=== PATIENT | male | born 1975 | race American Indian/Alaskan Native ===

== ENCOUNTER 2017-04-26 09:37 | Emergency (ER) | payer SELFPAY ==
[2017-04-26] MEDS ORDERED: XYLOCAINE 1% 20 mL INFILTRATI ONE (17:28)
[2017-04-26] MEDS ORDERED: BACTRIM DS PO ONE (18:30)
--- NOTE | 2017-04-26 18:36 | Emergency Department Report ---
ED General Adult HPI - General Chief complaint: Skin/Abscess/Foreign Body Stated complaint: ABCESS R SIDE OF NECK Time Seen by Provider: 04/26/17 17:28 Source: patient Mode of arrival: Ambulatory Limitations: No Limitations - History of Present Illness Initial comments: Pt is a 42 M no significant pmhx who presents with a right sided chin abscess. Pt states that it occurred 3 days ago. He states that it been open and draining. Pt states that pain is a 1/10 shaving makes the pain worse and nothing makes the pain better. Pt states that he has had no fevers no chills no nausea or vomiting. 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 He has no other complaints. - Related Data Previous Rx's Medication Instructions Recorded Last Taken Type Sulfamethoxazole/Trimethoprim 1 each PO BID #10 tablet 04/26/17 Unknown Rx [Bactrim DS TAB] Allergies Allergy/AdvReac Type Severity Reaction Status Date / Time No Known Allergies Allergy Unverified 04/26/17 12:37 ED Review of Systems ROS: Stated complaint: ABCESS R SIDE OF NECK Other details as noted in HPI Constitutional: denies: chills, fever Eyes: denies: eye pain, eye discharge, vision change ENT: denies: ear pain, throat pain Respiratory: denies: cough, shortness of breath, wheezing Cardiovascular: denies: chest pain, palpitations Endocrine: no symptoms reported Gastrointestinal: denies: abdominal pain, nausea, diarrhea Genitourinary: denies: urgency, dysuria Musculoskeletal: denies: back pain, joint swelling, arthralgia Skin: other (abscess). denies: rash, lesions Neurological: denies: headache, weakness, paresthesias Psychiatric: denies: anxiety, depression Hematological/Lymphatic: denies: easy bleeding, easy bruising ED Past Medical Hx - Past Medical History Previous Medical History?: No - Surgical History Past Surgical History?: No - Social History Smoking Status: Never Smoker Substance Use Type: Marijuana - Medications Home Medications: Home Medications Medication Instructions Recorded Confirmed Last Taken Type Sulfamethoxazole/Trimethoprim 1 each PO BID #10 tablet 04/26/17 Unknown Rx [Bactrim DS TAB] ED Physical Exam - General Limitations: No Limitations General appearance: alert, in no apparent distress - Head Head exam: Present: atraumatic, normocephalic - Eye Eye exam: Present: normal appearance - ENT ENT exam: Present: mucous membranes moist - Neck Neck exam: Present: other (2cm x 1 cm abscess on neck ) - Respiratory Respiratory exam: Present: normal lung sounds bilaterally. Absent: respiratory distress - Cardiovascular Cardiovascular Exam: Present: regular rate, normal rhythm. Absent: systolic murmur, diastolic murmur, rubs, gallop - GI/Abdominal GI/Abdominal exam: Present: soft, normal bowel sounds - Rectal Rectal exam: Present: deferred - Extremities Exam Extremities exam: Present: normal inspection - Back Exam Back exam: Present: normal inspection - Neurological Exam Neurological exam: Present: alert, oriented X3 - Psychiatric Psychiatric exam: Present: normal affect, normal mood - Skin Skin exam: Present: warm, dry, intact, normal color. Absent: rash ED Course Vital Signs 04/26/17 12:33 Temperature 98.1 F Pulse Rate 63 Respiratory 16 Rate Blood Pressure 120/80 O2 Sat by Pulse 99 Oximetry - I & D Right Neck Type of Procedure: Simple Site: used 4 cc's of lidocaine to numb the area. Blade Size: 16 I & D Procedure: sterile drapes applied Progress: small amount of pus was expressed ED Medical Decision Making - Medical Decision Making Cdx: Abscess ddx: Foliculitis, cellulitis I will give patient oral antibiotics and I will do an incision and drain. Pt tolerated procedure well and I will send pt home with work note. Discussed plan with patient and patient agrees with plan additional verbal discharge instructions were given. Critical care attestation.: If time is entered above; I have spent that time in minutes in the direct care of this critically ill patient, excluding procedure time. ED Disposition Clinical Impression: Abscess, Folliculitis Disposition: DC-01 TO HOME OR SELFCARE Is pt being admited?: No Does the pt Need Aspirin: No Condition: Stable Instructions: Abscess (ED) Prescriptions: Sulfamethoxazole/Trimethoprim [Bactrim DS TAB] 1 each PO BID #10 tablet Referrals: PRIMARY CARE, [Primary Care Provider] - 3-5 Days Forms: Work/School Release Form(ED)
[2017-04-26 19:13] VITALS: BP 134/88
== END 2017-04-26 19:11 | disposition home or self-care (01) ==
LOC: ED 09:37
DX: L02.01 Cutaneous abscess of face (principal)
CPT/HCPCS: 99283